=== PATIENT | female | born 1975 | race Caucasian/White ===

== ENCOUNTER 2022-12-23 11:52 | Day surgery (SDC) | payer OTHER ==
[~2022-12-23] VITALS: Ht 175.3 cm; Wt 149.7 kg
[~2022-12-23 11:52] MED LIST: LOSARTAN POTASS50 MG PO; METFORMIN HCL500 M3 PO; NEURONTIN600 MG PO
== END 2022-12-23 21:55 | disposition home or self-care (01) ==
LOC: CIR.AMB 11:52
PROVIDERS: ATTEND Orthopaedic Surgery Hand Surgery
DX: G56.02 Carpal tunnel syndrome, left upper limb (principal); E11.9 Type 2 diabetes mellitus without complications; E78.00 Pure hypercholesterolemia, unspecified; Z20.822 Contact with and (suspected) exposure to COVID-19; I10 Essential (primary) hypertension; Z88.0 Allergy status to penicillin